=== PATIENT | female | born 1940 | race Caucasian/White ===

== ENCOUNTER 2018-03-01 20:15 | Inpatient (IN) | payer BC ==
[~2018-03-01] VITALS: Ht 154.9 cm; Wt 35.8 kg
[2018-03-01 20:21] VITALS: BP 190/83
[2018-03-01 20:41] LABS: ABSOLUTE LYMPHOCYTES 2.3 thou/uL (0.8-5.3); ABSOLUTE MONOCYTES 0.4 thou/uL (0.0-1.2); ABSOLUTE NEUTROPHILS 5.4 thou/uL (1.6-8.1); BASOPHILS 0.3 %; EOSINOPHILS 0.6 %; HEMATOCRIT 33.2 % (37.0-47.0); HEMOGLOBIN 11.5 gm/dL (12.0-15.0); LYMPHOCYTES 28.5 %; MCH 32.3 pg (26.0-34.0); MCHC 34.7 g/dL (28.0-37.0); MCV 93.1 fL (80.0-100.0); MONOCYTES 4.4 %; NUCLEATED RBCS 0 /100WBC; PLATELET COUNT* 254 thou/uL (150-400); POLYS 66.2 %; RBC 3.56 mil/uL (4.20-5.00); RDW-CV 15.1 % (10.5-14.5); WBC 8.2 thou/uL (4.0-11.0)
[2018-03-01 20:48] LABS: CALCIUM 7.8 mg/dL (8.5-10.1); CREATININE 0.9 mg/dL (0.6-1.3)
[2018-03-01 20:50] LABS: POTASSIUM 2.2 mmol/L (3.5-5.1)
[2018-03-01 20:52] LABS: ALBUMIN 3.3 g/dL (3.4-5.0); TOTAL BILIRUBIN 0.6 mg/dL (<0.1-1.0); TOTAL PROTEIN 6.6 g/dL (6.4-8.2)
[2018-03-01 20:58] LABS: APTT 25.4 Seconds (25.0-31.3); INR 1.2; PROTIME 12.3 Seconds (9.20-11.50)
[2018-03-01 21:05] LABS: URINE BILIRUBIN NEGATIVE (Negative); URINE BLOOD NEGATIVE (Negative); URINE CLARITY CLEAR; URINE COLOR STRAW; URINE GLUCOSE-RANDOM 1+ (Negative); URINE KETONES NEGATIVE (Negative); URINE LEUKOCYTES NEGATIVE (Negative); URINE NITRITE NEGATIVE (Negative); URINE PROTEIN NEGATIVE (Negative); URINE UROBILINOGEN 0.2 E.U./dl (0.2-1.0)
[2018-03-01 22:33] LABS: PHOSPHORUS* 2.2 mg/dL (2.5-4.9)
[2018-03-01 22:45] LABS: MAGNESIUM 0.4 mg/dL (1.8-2.4)
[2018-03-02] VITALS (8 sets, daily range): BP systolic 145–190; BP diastolic 64–125
[2018-03-02] MEDS ORDERED: LISINOPRIL2.5 MG PO (18:49)
[2018-03-02] MEDS ORDERED: ASPIR 8181 MG PO (18:50)
[2018-03-02] MEDS ORDERED: ATIVAN0.5 MG PO (18:50)
[2018-03-02] MEDS ORDERED: ZOCOR20 MG PO (18:50)
[2018-03-02] MEDS ORDERED: PROTONIX40 M1 PO (18:51)
[2018-03-02] MEDS ORDERED: LOPERAMIDE 2 MG2 M1 PO (18:52)
--- NOTE | 2018-03-02 19:34 | CON ---
[address] [address] CONSULTATION Name: DEVIKA RAMSAY Room: [address] IN M.R.#: [id number] Admission: 03/01/18 Attend Phys: Ezequiel Wiggins MD Discharge: Date of : 44 Report #: [id number] THIS REPORT FOR: //name// CC: Ezequiel Siegel DATE OF SERVICE: 03/02/2018 HISTORY OF PRESENT ILLNESS: This is a 78-year-old female patient who was evaluated by me for any neurological etiology for the patient's falls. The patient does not remember anything. She said she fell down yesterday. The patient's is there and he indicated the same thing. The patient was wearing the glasses. She had some injury there. No tonic-clonic activity was noticed. She was brought to Emergency Room. They did a CAT scan on her, which was unremarkable. The lab indicated a very low potassium. When she came to Emergency Room, she was alert and oriented. She does not know anything else, which brought this episode on. Especially, this patient has not been started on any seizure causing medication recently. REVIEW OF SYSTEMS: Indicate about a month ago, she was admitted to [facility]. She had a seizure at that time, which was attributed to low potassium. They corrected that and apparently did all the workup there. She had an MRI done there and she is very reluctant to have another MRI. She also had some other workup. In March of last year, she was diagnosed with colon cancer. She had five surgeries since then. She is walking with a walker now. Prior to March of last year, she was completely independent. She is not complaining of any new symptoms. The patient's indicates that her memory was declining recently. REVIEW OF SYSTEMS: A 14-point review of system was carried out and does not look like she has any new eye, ENT, cardiac, respiratory, GI, , musculoskeletal, constitutional, dermatological, hematological, psychiatric, throat, allergic symptom associated with present symptomatology. PAST MEDICAL HISTORY: Positive for seizure for which she was admitted to [facility]. FAMILY HISTORY: Negative for congenital epilepsy. SOCIAL HISTORY: She does not drink any alcohol according to the . PHYSICAL EXAMINATION: The patient is alert, responsive, oriented. Her speech, concentration, fund of knowledge and memory is at her baseline. Cranial nerve examination 2-12 looks unremarkable. She has symmetrical strength, sensation, reflexes and tone in all 4 extremities. Her pulses are palpable. She has no papilledema. There is no meningeal sign [place] [address] CONSULTATION Name: DEVIKA RAMSAY Room: [address] IN ..#: [id number] Admission: 03/01/18 Attend Phys: Ezequiel Wiggins MD Discharge: Date of : 44 Report #: [id number] She is very thinly built individual who does not have any dysmorphic features of eyes, ears and face. Her vision and hearing looks adequate. Her pulses are palpable. She has no edema, cyanosis or jaundice. Cardiac examinations appear unremarkable. No respiratory difficulty or rhonchi was noticed. Blood pressure is 168/88, respirations 18, pulse is 101, temperature is 98.1. LABORATORY DATA: Indicates a RBC count of 3.56. Admission potassium was only 2.2. Her calcium was 7.8 and for some reason, her magnesium was 0.4. This patient's magnesium now is 4.1. IMPRESSION: This patient most likely had another seizure. Syncope is also possible because her potassium was so low and that it can give rise to arrhythmias. Low potassium, typically does not give rise to seizures. Therefore, low magnesium is more likely to be the cause of the symptoms and low calcium may also be contributing to that. We need to get the record from [facility] and see what they did and what her magnesium was. She is very reluctant to have another MRI, but we will try to get it done and try to talk or doing that if necessary depending on what workup they did at [facility]. RECOMMENDATION: 1. Get the record from [place] and see what her magnesium was that time. 2. We will see if we need to repeat the MRI. 3. Continue to correct the metabolic disturbances including potassium, magnesium and calcium. 4. Get an EEG done. 5. Her rest of the workup will depend upon the outcome of the above testing. This patient needs to take seizure precautions and she cannot drive for at least 6 months. Thank you very much for this referral and if you have any question, please feel free to contact me. <ELECTRONICALLY SIGNED> By: Moe Adams MD 03/02/18 1934 1200 [id number] Adams MD /fawad
--- NOTE | 2018-03-02 19:34 | EEG ---
[address] [address] EEG STUDY REPORT Name: DEVIKA RAMSAY Room: [address] IN M.R.#: [id number] Admission: 03/01/18 Attend Phys: Ezequiel Wiggins MD Discharge: Date of : 44 Report #: [id number] THIS REPORT FOR: //name// CC: Ezequiel Siegel DATE OF SERVICE: 03/02/2018 This patient had an episode of seizure and EEG is being done to further evaluate that. EEG was done by placing the electrodes by standard 10-20 system of electrode placement. Both referential and sequential montages were used for recording. Background activity in this patient's EEG is about 7-8 Hz and 40 microvolt. The patient went to sleep that is associated with bilateral slowing and vertex sharp waves. Photic stimulation is unremarkable. IMPRESSION: This is a moderately abnormal electroencephalogram because it is intermixed with theta range slowing on both sides. That is a nonspecific abnormality, which can occur with encephalopathy, effect of psychotropic medication, dementia, etc. I do not see any clear-cut epileptiform activity, but the electroencephalogram is somewhat disorganized and poorly formed. Thank you very much for this referral. <ELECTRONICALLY SIGNED> By: Moe Adams MD 03/02/18 1934 1624 [id number] Adams MD /fawad
[2018-03-03 04:00] VITALS: BP 148/62
[2018-03-03 06:15] LABS: MAGNESIUM 1.9 mg/dL (1.8-2.4)
[2018-03-03 06:50] LABS: POTASSIUM 5.1 mmol/L (3.5-5.1)
[2018-03-03 08:30] VITALS: BP 178/77
--- NOTE | 2018-03-03 11:30 | EKG ---
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
[2018-03-03 11:55] VITALS: BP 152/84
[2018-03-03 16:00] VITALS: BP 172/69
[2018-03-03 20:00] VITALS: BP 175/68
[2018-03-04] VITALS: BP 172/78
[2018-03-04 04:00] VITALS: BP 175/72
[2018-03-04 05:34] LABS: ALBUMIN 2.6 g/dL (3.4-5.0); CALCIUM 8.6 mg/dL (8.5-10.1); CREATININE 0.7 mg/dL (0.6-1.3); MAGNESIUM 1.3 mg/dL (1.8-2.4); TOTAL BILIRUBIN 0.7 mg/dL (<0.1-1.0); TOTAL PROTEIN 5.5 g/dL (6.4-8.2)
[2018-03-04 05:54] LABS: POTASSIUM 4.1 mmol/L (3.5-5.1)
[2018-03-04 08:30] VITALS: BP 196/86
[2018-03-04 12:00] VITALS: BP 192/88
[2018-03-04] MEDS ORDERED: ATENOLOL 25 MG25 M1 PO (14:25)
[2018-03-04] MEDS ORDERED: LAMICTAL100 MG PO (14:29)
[2018-03-04] MEDS ORDERED: POTASSIUM20 PO (14:30)
[2018-03-04] MEDS ORDERED: MAGNESIUM400 MG PO (14:30)
[2018-03-04 14:32] VITALS: BP 192/88
== END 2018-03-04 14:50 | disposition home health service (06) | DRG 391 ==
LOC: M.ERS 20:15 → M.2W 23:13 → M.TBA-ER 23:13 → M.2W 03-02 00:17
PROVIDERS: Internal Medicine; Personal Emergency Response Attendant; ADMIT Internal Medicine
DX: K91.2 Postsurgical malabsorption, not elsewhere classified (principal); G92 Toxic encephalopathy; E43 Unspecified severe protein-calorie malnutrition; Z68.1 Body mass index [BMI] 19.9 or less, adult; Y83.9 Surgical procedure, unspecified as the cause of abnormal reaction of the patient, or of later complication, without mention of misadventure at the time of the procedure; E87.6 Hypokalemia; R91.1 Solitary pulmonary nodule; R56.9 Unspecified convulsions; E83.42 Hypomagnesemia; I10 Essential (primary) hypertension; W18.39XA Other fall on same level, initial encounter; Z85.038 Personal history of other malignant neoplasm of large intestine; Z90.49 Acquired absence of other specified parts of digestive tract; Y93.89 Activity, other specified; Y92.89 Other specified places as the place of occurrence of the external cause; Y99.8 Other external cause status; Z28.21 Immunization not carried out because of patient refusal; Z79.82 Long term (current) use of aspirin; Z79.899 Other long term (current) drug therapy